=== PATIENT | female | born 1990 | race African-American/Black ===

== ENCOUNTER 2021-08-16 03:20 | Inpatient (IN) | payer BC, SELFPAY ==
[2021-08-16] MEDS ORDERED: Adenosine 6 MG/2 ML VIAL ONE ×3 (03:44→03:55)
[2021-08-16] MEDS ORDERED: Metoprolol Tartrate 5 MG/5 ML VIAL ONE (04:10)
[2021-08-16] MEDS ORDERED: Thiamine HCl 200 MG/2 ML VIAL SLOW IVP SCH (07:00)
[2021-08-16] MEDS ORDERED: Folic Acid 1 MG, Multivitamins, Adult 10 ML in Dextrose 5 %-0.45 % NaCl 1,000 ML IV SCH (07:00)
[2021-08-16 07:20] LABS: ALT (SGPT) 84 U/L (8-55); AST (SGOT) 107 U/L (5-34); Albumin 3.6 g/dL (3.5-5.0); Alkaline Phosphatase 90 U/L (40-110); BUN (Urea Nitrogen) 5 mg/dL (7.0-18.7); Bilirubin, Total 2.4 mg/dL (0.2-1.2); Calc. Creatinine Clearance 0 mL/min (70-130); Calcium 9.2 mg/dL (7.8-10.44); Chloride 98 mmol/L (98-107); Globulin 4.8 g/dL (2.4-3.5); Glucose 72 mg/dL (70-105); Potassium 5.1 mmol/L (3.5-5.1); Protein, Total 8.4 g/dL (6.0-8.3); Sodium 132 mmol/L (136-145)
[2021-08-16 07:23] LABS: Thyroid Stimulating Hormone 0.7261 uIU/mL (0.35-4.94)
[2021-08-16 07:24] LABS: Troponin I Less than 0.010 ng/mL (< 0.028)
[2021-08-16 07:25] LABS: Carbon Dioxide Less than 8 mmol/L (22-29)
[2021-08-16 07:27] LABS: BHCG - Serum Negative (NEGATIVE); Pregs Control Background? CLEAR/WHITE (CLR/WHITE); Pregs Control Bar Appear? YES (CONTROL BAR)
[2021-08-16 07:38] LABS: Band 7 % (5-11); Hemoglobin 16.5 g/dL (12.0-16.0); Hypochromia SLIGHT = 6-15 cells (100X) (0-5/hpf); Lymphocytes 8 % (21-51); MDiff Complete? YES; Macrocytosis SLIGHT = 6-15 cells (100X) (0-5/hpf); Mean Corpuscular HGB CONC 32.1 g/dL (32.0-36.0); Mean Corpuscular Hemoglobin 34.8 pg (27.0-31.0); Mean Platelet Volume 9.5 fL (7.4-10.4); Monocytes 10 % (0-10); Neutrophil 75 % (42-75); Platelet Count 22 thou/uL (130-400); Platelet Morphology Comment Appears Decreased; RBC Distribution Width 13.5 % (11.5-14.5); Red Blood Cell (RBC) Count 4.74 mill/uL (4.20-5.40); Target Cells SLIGHT = 2-5 cells (100X) (0-1/hpf); White Blood Cell (WBC) Count 15.7 thou/uL (4.8-10.8)
[2021-08-16] MEDS ORDERED: Lorazepam 2 MG/ML VIAL ONE (07:44)
[2021-08-16] MEDS ORDERED: Ondansetron ODT 4 MG TAB PO PRN (08:49)
[2021-08-16] MEDS ORDERED: Lorazepam 2 MG/ML VIAL IM PRN (08:49)
[2021-08-16] MEDS ORDERED: Lorazepam 1 MG TAB PO PRN (08:49)
[2021-08-16] MEDS ORDERED: Electrolyte Replacement Protocol 1 EACH FS PRN (09:00)
[2021-08-16 09:54] LABS: Analyzer IN Cardio ER; Base Excess -8.2 mEq/L (-2.0 to +3.0); Calcium, Ionized (venous) 0.94 mmol/L (1.16-1.32); Chloride (VBG) 101 mmol/L (98-106); Hemoglobin (Hb) 17.1 g/dL (11.7-15.5); Sodium 131.7 mmol/L (133-146); pH (venous) 7.39 (7.32-7.43)
[2021-08-16 09:56] LABS: Actual Bicarbonate (HCO3v) 14 mEq/L (22-28)
[2021-08-16] MEDS ORDERED: Folic Acid 1 MG TAB ONE (10:21)
[2021-08-16] MEDS: Folic Acid 1 MG TAB PO SCH (10:25)
[2021-08-16 10:33] LABS: Magnesium 1.3 mg/dL (1.6-2.6)
[2021-08-16 11:03] LABS: Troponin I 0.011 ng/mL (< 0.028)
[2021-08-16 11:08] LABS: Bilirubin Negative (Negative); Blood, Urine Negative (Negative); Glucose, Urine (Dipstick) Negative (Negative); Ketone, Urine 40 mg/dL (Negative); Leukocyte Negative (Negative); Nitrite Negative (Negative); Protein, Urine (Dipstick) Negative (Neg-Trace); Urobilinogen 0.2 mg/dL (Less than 2); pH, Urine 5.5 (5.0-9.0)
[2021-08-16 11:21] LABS: Clarity Clear (Clear); Specific Gravity, Urine 1.022 (1.002-1.036)
[2021-08-16 11:22] LABS: Bacteria/HPF None Seen HPF (None Seen); RBC/HPF None Seen HPF (0-3); Squamous Epithelial 0-3 HPF (0-3); WBC/HPF None Seen HPF (0-3)
[2021-08-16 11:56] LABS: Manual Diff?? YES
[2021-08-16 12:07] LABS: INR-International Normal Ratio 1.2; Prothrombin Time 15.4 sec (12.0-14.7)
[2021-08-16 12:10] LABS: D-Dimer Test 0.52 *mcg/mL (0.27-0.43)
[2021-08-16] MEDS ORDERED: Magnesium Sulfate 4 GM in Sodium Chloride 0.9% 250 ML 250 ML IVPB SCH (12:45)
[2021-08-16] MEDS ORDERED: Magnesium 2 GM/50 ML 2 GM in Premix Bag 1 BAG IVPB SCH (13:15)
[2021-08-16 13:23] LABS: #Basophils 0.1 thou/uL (0.0-0.2); #Lymphocytes 2.5 thou/uL (1.20-3.40); #Neutrophils 11.2 thou/uL (1.40-6.50); %Basophils 0.4 % (0.0-1.0); %Eosinophils 0.2 % (0.0-10.0); %Lymphocytes 16.9 % (21.0-51.0); %Monocytes 6.8 % (0.0-10.0); %Neutrophils 75.8 % (42.0-75.0); Hemoglobin 15.4 g/dL (12.0-16.0); Mean Corpuscular HGB CONC 31.5 g/dL (32.0-36.0); Mean Corpuscular Hemoglobin 33.3 pg (27.0-31.0); Mean Platelet Volume 8.1 fL (7.4-10.4); Platelet Count 223 thou/uL (130-400); RBC Distribution Width 13.1 % (11.5-14.5); Red Blood Cell (RBC) Count 4.62 mill/uL (4.20-5.40); White Blood Cell (WBC) Count 14.8 thou/uL (4.8-10.8)
[2021-08-16 13:40] LABS: Lactic Acid 3.5 mmol/L (0.5-2.2)
[2021-08-16 13:45] LABS: ALT (SGPT) 69 U/L (8-55); AST (SGOT) 77 U/L (5-34); Albumin 3.7 g/dL (3.5-5.0); Alkaline Phosphatase 77 U/L (40-110); Anion Gap 17 mmol/L (10-20); BUN (Urea Nitrogen) 5 mg/dL (7.0-18.7); Bilirubin, Total 2.8 mg/dL (0.2-1.2); Calc. Creatinine Clearance 0 mL/min (70-130); Calcium 8.6 mg/dL (7.8-10.44); Carbon Dioxide 16 mmol/L (22-29); Chloride 99 mmol/L (98-107); Globulin 4.1 g/dL (2.4-3.5); Glucose 115 mg/dL (70-105); Potassium 4.6 mmol/L (3.5-5.1); Protein, Total 7.8 g/dL (6.0-8.3); Sodium 127 mmol/L (136-145)
[2021-08-16 13:47] LABS: MDiff Complete? YES; Macrocytosis SLIGHT = 6-15 cells (100X) (0-5/hpf); Pappenheimer Bodies SLIGHT = 1-2 cells (100X) (None Seen); Platelet Morphology Comment Appears Adequate; Polychromasia SLIGHT = 2-3 cells (100X) (0-2/hpf); Vacuoles SLIGHT
[2021-08-16 13:48] LABS: Target Cells SLIGHT = 2-5 cells (100X) (0-1/hpf)
[2021-08-16] MEDS: Lorazepam 1 MG TAB PO SCH ×3 (14:49→21:06)
[2021-08-16] MEDS: Multivit, Therapeutic 1 TAB PO SCH (14:50)
[2021-08-16] MEDS: Sodium Chloride 0.9% 1,000 ML IV SCH ×2 (15:59→20:08)
[2021-08-17] MEDS: Lorazepam 1 MG TAB PO SCH ×4 (02:15→20:02)
[2021-08-17] MEDS ORDERED: Acetaminophen 325 MG TAB PO PRN (02:37)
[2021-08-17] MEDS ORDERED: Calcium Carbonate 500 MG ChewTAB PO PRN (08:06)
[2021-08-17] MEDS ORDERED: Senokot S 8.6-50 MG TAB PO PRN (08:06)
[2021-08-17] MEDS ORDERED: Electrolyte Replacement Protocol 1 EACH FS SCH (08:15)
[2021-08-17] MEDS ORDERED: Electrolyte Replacement Protocol FS PRN (08:30)
[2021-08-17] MEDS ORDERED: Lorazepam 1 MG TAB PO PRN (08:49)
[2021-08-17] MEDS: Multivit, Therapeutic 1 TAB PO SCH (08:56)
[2021-08-17] MEDS: Folic Acid 1 MG TAB PO SCH (08:56)
[2021-08-17] MEDS ORDERED: Famotidine 20 MG TAB PO SCH (09:00)
[2021-08-17 09:01] LABS: #Lymphocytes 1.6 thou/uL (1.20-3.40); #Monocytes 0.8 thou/uL (0.11-0.59); #Neutrophils 5.1 thou/uL (1.40-6.50); %Basophils 0.6 % (0.0-1.0); %Eosinophils 0.3 % (0.0-10.0); %Lymphocytes 21.5 % (21.0-51.0); %Monocytes 10.3 % (0.0-10.0); %Neutrophils 67.2 % (42.0-75.0); Hemoglobin 14.5 g/dL (12.0-16.0); Mean Corpuscular HGB CONC 32.3 g/dL (32.0-36.0); Mean Corpuscular Hemoglobin 34.1 pg (27.0-31.0); Mean Platelet Volume 8.3 fL (7.4-10.4); Platelet Count 170 thou/uL (130-400); RBC Distribution Width 13.1 % (11.5-14.5); Red Blood Cell (RBC) Count 4.24 mill/uL (4.20-5.40); White Blood Cell (WBC) Count 7.6 thou/uL (4.8-10.8)
[2021-08-17 09:22] LABS: Magnesium 2.2 mg/dL (1.6-2.6)
[2021-08-17 09:24] LABS: ALT (SGPT) 54 U/L (8-55); AST (SGOT) 80 U/L (5-34); Albumin 3.3 g/dL (3.5-5.0); Alkaline Phosphatase 64 U/L (40-110); Anion Gap 17 mmol/L (10-20); BUN (Urea Nitrogen) 9 mg/dL (7.0-18.7); Bilirubin, Total 3.2 mg/dL (0.2-1.2); Calc. Creatinine Clearance 137 mL/min (70-130); Calcium 8.3 mg/dL (7.8-10.44); Carbon Dioxide 21 mmol/L (22-29); Chloride 100 mmol/L (98-107); Globulin 3.7 g/dL (2.4-3.5); Glucose 84 mg/dL (70-105); Potassium 4.3 mmol/L (3.5-5.1); Sodium 134 mmol/L (136-145)
[2021-08-17 09:30] LABS: Phosphorus 1.4 mg/dL (2.3-4.7)
[2021-08-17] MEDS ORDERED: Potassium Phosphate 30 MMOL in Sodium Chloride 0.9% 500 ML IVPB SCH (10:00)
[2021-08-17] MEDS: Sodium Chloride 0.9% 1,000 ML IV SCH ×2 (10:51)
[2021-08-17] MEDS: K-Phos Neutral 250 MG TAB PO SCH ×2 (10:51→15:52)
[2021-08-17 11:15] LABS: SARS-CoV-2 PCR by NAA Not Detected (NotDetected)
[2021-08-17] MEDS ORDERED: FLU VACC QS2021-22(6MOS UP)/PF 60 MCG/0.5 ML SYRINGE IM ONE (14:45)
[2021-08-17 15:01] VITALS: BMI 27.7
[2021-08-17 16:15] LABS: Amphetamine Not Detected (NotDetected); Barbiturates Screen Not Detected (NotDetected); Benzodiazepine Screen Not Detected (NotDetected); Cocaine Metabolite Screen Not Detected (NotDetected); Methadone Not Detected (NotDetected); Methamphetamine Not Detected (NotDetected); Opiate Screen Not Detected (NotDetected); Oxycodone Screen Not Detected (NotDetected); Phencyclidine (PCP) Not Detected (NotDetected); THC/Cannabinoid Screen Detected (NotDetected); Tricyclic Screen Not Detected (NotDetected)
[2021-08-17 18:10] LABS: Anion Gap 18 mmol/L (10-20); BUN (Urea Nitrogen) 9 mg/dL (7.0-18.7); Calc. Creatinine Clearance 135 mL/min (70-130); Calcium 8.7 mg/dL (7.8-10.44); Carbon Dioxide 21 mmol/L (22-29); Chloride 99 mmol/L (98-107); Glucose 69 mg/dL (70-105); Sodium 134 mmol/L (136-145)
[2021-08-17] MEDS ORDERED: Lidocaine Viscous Sol 2% 15 ml UD Cup SSW PRN (20:58)
[2021-08-18] MEDS ORDERED: Morphine 4 MG/ML VIAL SLOW IVP SCH (01:45)
[2021-08-18] MEDS: Sodium Chloride 0.9% 1,000 ML IV SCH ×2 (01:56→11:18)
[2021-08-18] MEDS: Lorazepam 1 MG TAB PO SCH (02:00)
[2021-08-18 05:10] LABS: PTT 29.2 sec (22.9-36.1); Prothrombin Time 13.7 sec (12.0-14.7)
[2021-08-18 05:22] LABS: Albumin 3.1 g/dL (3.5-5.0)
[2021-08-18 05:23] LABS: Chloride 102 mmol/L (98-107); Potassium 3.9 mmol/L (3.5-5.1); Sodium 133 mmol/L (136-145)
[2021-08-18 05:24] LABS: Calcium 8.4 mg/dL (7.8-10.44)
[2021-08-18 05:25] LABS: Globulin 3.6 g/dL (2.4-3.5); Glucose 84 mg/dL (70-105); Protein, Total 6.7 g/dL (6.0-8.3)
[2021-08-18 05:26] LABS: Anion Gap 14 mmol/L (10-20); Bilirubin, Total 2.6 mg/dL (0.2-1.2); Carbon Dioxide 21 mmol/L (22-29)
[2021-08-18 05:28] LABS: Alkaline Phosphatase 74 U/L (40-110); Calc. Creatinine Clearance 154 mL/min (70-130)
[2021-08-18 05:29] LABS: BUN (Urea Nitrogen) 7 mg/dL (7.0-18.7)
[2021-08-18 05:30] LABS: AST (SGOT) 109 U/L (5-34); Magnesium 1.7 mg/dL (1.6-2.6)
[2021-08-18 05:31] LABS: ALT (SGPT) 62 U/L (8-55)
[2021-08-18 06:57] LABS: #Lymphocytes 1.8 thou/uL (1.20-3.40); #Monocytes 0.7 thou/uL (0.11-0.59); #Neutrophils 3.1 thou/uL (1.40-6.50); %Basophils 0.4 % (0.0-1.0); %Eosinophils 0.4 % (0.0-10.0); %Lymphocytes 31.7 % (21.0-51.0); %Monocytes 12.6 % (0.0-10.0); %Neutrophils 54.9 % (42.0-75.0); Hemoglobin 13.5 g/dL (12.0-16.0); Mean Corpuscular HGB CONC 31.4 g/dL (32.0-36.0); Mean Corpuscular Hemoglobin 34.6 pg (27.0-31.0); Mean Platelet Volume 8.8 fL (7.4-10.4); Platelet Count 129 thou/uL (130-400); Red Blood Cell (RBC) Count 3.91 mill/uL (4.20-5.40); White Blood Cell (WBC) Count 5.7 thou/uL (4.8-10.8)
[2021-08-18] MEDS ORDERED: Electrolyte Replacement Protocol 1 EACH FS SCH (07:45)
[2021-08-18 07:59] VITALS: BP 131/90; TEMP 97.5
[2021-08-18] MEDS: Folic Acid 1 MG TAB PO SCH (08:32)
[2021-08-18] MEDS: Multivit, Therapeutic 1 TAB PO SCH (08:32)
[2021-08-18] MEDS ORDERED: Lorazepam 1 MG TAB PO PRN (08:49)
[2021-08-18] MEDS ORDERED: Lorazepam 0.5 MG TAB PO SCH (09:00)
[2021-08-18] MEDS ORDERED: Magnesium 2 GM/50 ML 2 GM in Premix Bag 1 BAG IVPB SCH (10:00)
[2021-08-19] MEDS ORDERED: Lorazepam 0.5 MG TAB PO PRN (08:49)
[2021-08-19] MEDS ORDERED: Thiamine 100 MG TAB PO SCH (09:00)
== END 2021-08-18 11:11 | disposition home or self-care (01) | DRG 309 ==
LOC: ERS 03:20 → ERHOLD 06:52 → 2NO 13:39 → OBSVTOIN 15:44
PROVIDERS: ADMIT Internal Medicine; ATTEND Family Medicine
DX: I47.1 Supraventricular tachycardia (principal); E87.2 Acidosis; E87.1 Hypo-osmolality and hyponatremia; F10.10 Alcohol abuse, uncomplicated; E83.42 Hypomagnesemia; E83.39 Other disorders of phosphorus metabolism; F41.9 Anxiety disorder, unspecified; K70.10 Alcoholic hepatitis without ascites; Z20.822 Contact with and (suspected) exposure to COVID-19; K76.0 Fatty (change of) liver, not elsewhere classified; I10 Essential (primary) hypertension; E86.0 Dehydration; D69.6 Thrombocytopenia, unspecified; R73.03 Prediabetes; D72.829 Elevated white blood cell count, unspecified; Z90.89 Acquired absence of other organs
CPT/HCPCS: 36415; 71045; 76705; 80053; 80306; 80307; 81003; 82805; 83605; 83735; 84100; 84443; 84484; 84703; 85025; 85379; 85610; 85730; 93005; 93306; G0378; J0153; J2060; J2270; J3411; J3475; J7030; J7042; J7050; U0003; U0005